=== PATIENT | female | born 1980 | race Caucasian/White ===

== ENCOUNTER 2016-06-19 12:39 | Inpatient (IN) | payer OTHER ==
[~2016-06-19] VITALS: Ht 162.6 cm; Wt 87.9 kg
[2016-06-19] VITALS (11 sets, daily range): BP systolic 115–140; BP diastolic 64–80
[~2016-06-19 12:39] MED LIST: ENDOCET 5-3251 EACH PO; IBUPROFEN800 MG PO; PRENATAL TABLE1 EAC3 PO; TUMS DUAL ACTI1 EACH PO; TUMS500 MG PO; TYLENOL EXTRA500 MG PO
[2016-06-19] MEDS ORDERED: ZANTAC75 M1 PO (13:16)
[2016-06-19 14:26] LABS: EOSINOPHIL (%) 0.4 % (0-5); EOSINOPHIL COUNT 0.1 K/uL (0-0.3); HEMATOCRIT 35.7 % (36.0-46.0); IMMATURE GRANULOCYTE (%) 0.7 % (0.0-0.7); IMMATURE GRANULOCYTE COUNT 0.1 K/uL; LYMPHOCYTE COUNT 1.8 K/uL (1.0-2.8); MCH 29.9 PG (29.0-34.0); MCHC 33.1 G/DL (30.0-36.0); MCV 90.4 FL (83-99); MEAN PLAT.VOLUME 9.8 uM^3 (9.5-12.4); MONOCYTE (%) 5.6 % (3-12); MONOCYTE COUNT 0.8 K/uL (0-0.8); NEUTROPHIL (%) 80.1 % (45-76); NEUTROPHIL COUNT 10.9 K/uL (1.8-6.4); PLATELET COUNT 251 K/uL (156-360); RBC DIS.WIDTH-CV 14.1 % (11.8-14.6); RBC DIS.WIDTH-SD 46.3 % (39-53); RED BLOOD COUNT 3.95 M/uL (3.80-5.20); WHITE BLOOD COUNT 13.7 K/uL (4.1-10.2)
[2016-06-19] MEDS ORDERED: IBUPROFEN800 MG PO (16:48)
[2016-06-20 07:17] VITALS: BP 147/73
[2016-06-20 14:49] VITALS: BP 120/75
[2016-06-20 22:19] VITALS: BP 127/67
[2016-06-21 08:01] VITALS: BP 120/71
[2016-06-21 15:34] VITALS: BP 130/63
== END 2016-06-21 16:20 | disposition home or self-care (01) | DRG 775 ==
LOC: LDRP-OP 12:39 → 2WEST 12:40 → LDRP-OP 07-18 11:18
PROVIDERS: Advanced Practice Midwife
PROC: 10E0XZZ Delivery of Products of Conception, External Approach (ICD-10-PCS; principal; 2016-06-19)
PROC: 10907ZC Drainage of Amniotic Fluid, Therapeutic from Products of Conception, Via Natural or Artificial Opening (ICD-10-PCS; 2016-06-19)
DX: O99.824 Streptococcus B carrier state complicating childbirth (principal); O36.0931 Maternal care for other rhesus isoimmunization, third trimester, fetus 1; Z37.0 Single live birth; Z3A.40 40 weeks gestation of pregnancy; F41.9 Anxiety disorder, unspecified; N60.11 Diffuse cystic mastopathy of right breast; O99.344 Other mental disorders complicating childbirth
CPT/HCPCS: 83030; 85025; 86850; 86900; 86901; J2540; J2790; J7120